=== PATIENT | male | born 1975 | race Two or more races ===

== ENCOUNTER 2020-07-07 12:34 | Inpatient (IN) | payer OTHER ==
[2020-07-07] VITALS (10 sets, daily range): BP systolic 127–144; BP diastolic 72–98
[~2020-07-07] VITALS: Ht 162.6 cm; Wt 79.0 kg
[2020-07-07] MEDS ORDERED: HEPARIN for IV BOLUS 10,000 UNIT/10 ML VIAL. ONE (12:39)
[2020-07-07] MEDS ORDERED: fentaNYL PF VIAL 100 MCG/2 ML VIAL ONE (12:39)
[2020-07-07] MEDS ORDERED: ONDANSETRON PF 4 MG/2 ML VIAL. ONE (12:39)
[2020-07-07] MEDS ORDERED: IV NORMAL SALINE 1000ML BAG 1,000 ML IV ONE (12:45)
[2020-07-07] MEDS ORDERED: fentaNYL PF VIAL 100 MCG/2 ML VIAL IV ONE ×2 (12:45→13:45)
[2020-07-07] MEDS ORDERED: HEPARIN for IV BOLUS 10,000 UNIT/10 ML VIAL. IV ONE (12:45)
[2020-07-07] MEDS ORDERED: ONDANSETRON PF 4 MG/2 ML VIAL. IVP ONE (12:45)
--- NOTE | 2020-07-07 12:51 | PHYS DOC ---
Past Medical History Past Medical History: No Pertinent History Past Surgical History: No Surgical History Smoking Status: Never Smoker Alcohol Use: Occasionally Drug Use: None General Adult EDM: Chief Complaint: Chest pain HPI: HPI: Patient is a 45 year old male presents via EMS as code STEMI. Patient reports having some chest pain that started yesterday which had resolved until this morning. Patient reports noting mid-sternal chest pain that started at 0900. Reports some associated nausea without vomiting. EMS reports giving 324 mg of aspirin and applying Nitropaste prior to arrival. EMS EKG noted significant ST elevation in I, aVL, and V1 through V4. Patient denies any trauma. Denies leg swelling or calf tenderness. Cardiac risk factors of family history of CAD. Review of Systems: Review of Systems: Constitutional: Denies fever or chills; reports malaise Eyes: Denies redness or eye pain HENT: Denies nasal congestion or sore throat Respiratory: Denies cough or shortness of breath Cardiovascular: Reports chest pain; denies palpitations GI: Denies abdominal pain or vomiting; reports nausea : Denies dysuria or hematuria Musculoskeletal: Denies back pain or joint pain Integument: Denies rash or skin lesions Neurologic: Denies headache, focal weakness or sensory changes Complete systems were reviewed and found to be within normal limits, except as documented in this note. Heart Score: HEART Score for Chest Pain: HEART Score for Chest Pain Response (Comments) Value History Highly Suspicious 2 ECG Nonspecific Repolarizatio 1 Age < 45 0 Risk Factors 1 or 2 Risk Factors 1 Troponin >3 x Normal Limit 2 Total 6 Risk Factors: Risk Factors: DM, Current or recent (<one month) smoker, HTN, HLP, family history of CAD, obesity. Risk Scores: Score 0 - 3: 2.5% MACE over next 6 weeks - Discharge Home Score 4 - 6: 20.3% MACE over next 6 weeks - Admit for Clinical Observation Score 7 - 10: 72.7% MACE over next 6 weeks - Early Invasive Strategies Physical Exam: PE: Constitutional: Well developed, well nourished, appears uncomfortable HENT: Normocephalic, atraumatic Eyes: Conjunctiva normal, no discharge Neck: Normal range of motion, no tenderness, supple Lungs & Thorax: No respiratory distress, equal chest rise and fall Abdomen: Soft, no tenderness Skin: Warm, dry, no erythema, no rash Extremities: No tenderness, ROM intact, no edema Neurologic: Alert and oriented X 3, no focal deficits noted Psychologic: Affect normal, judgment normal EKG: EKG: @1236 Sinus bradycardia at 53bpm, ST elevation V1-V4 and I and aVL, no ST depression, t wave inversion III, QRS 86ms, QT/QTc 384/362ms Prehospital EKG from 1321 that was transmitted noted to have Sinus bradycardia at 55bpm, ST elevation noted to I and aVL and V2-V4 with ST depression in III and aVF, QRS 103ms, QRS 392/377ms Radiology/Procedures: Radiology/Procedures: PROCEDURE: PORTABLE CHEST 1V AP chest. HISTORY: STEMI AP view was taken of the chest. Lungs are clear. Heart is normal in size. There is no pleural effusion. IMPRESSION: 1. No acute infiltrates. Electronically signed by: Christophe Lu MD (07/07/2020 12:51 PM) [facility] Course & Med Decision Making: Course & Med Decision Making Pertinent Labs and Imaging studies reviewed. (See chart for details) Patient presents via EMS as code STEMI. Patient reports started to have some chest pain yesterday which since resolved and then again started this morning at approximately 0900. Patient reports some associated nausea. EMS noted prehospital EKG with significant ST elevation upon monitoring. EMS reports giving 324 mg of aspirin and giving some Nitropaste. EMS reports removing Nitropaste just prior to arrival after noting EKG findings in inferior leads. EKG confirmed STEMI. Labs obtained and pending. Chest x-ray stable. Heparin bolus provided. Rapid COVID-19 testing obtained. Case discussed with Dr. Rosario (cardiology) prior to patient's arrival for shrimp pond laborer activation. Dr. Rosario presented to ED soon after patient's arrival and took patient to shrimp pond laborer for intervention. Patient requiring ICU admission for further evaluation and treatment. Discussed with Dr. Richards (hospitalist) who is in agreement with admission. Discussed findings and plan with patient, who acknowledges understanding and agreement. Dragon Disclaimer: Dragon Disclaimer: This electronic medical record was generated, in whole or in part, using a voice recognition dictation system. Departure Departure Impression: Primary Impression: STEMI (ST elevation myocardial infarction) Qualified Codes: I21.3 - ST elevation (STEMI) myocardial infarction of unspecified site Disposition: ADMITTED INPT THIS HOSP (ICU) Condition: GUARDED Critical Care Time Critical care time was 30 minutes which includes time at bedside, spent in discussion of patient's care with specialists and/or family members, with interpretation of laboratory and/or radiological studies and is exclusive of procedures. DONNA LENTZ DO Jul 07, 2020 12:51
--- NOTE | 2020-07-07 12:54 | RAD ---
AP chest. HISTORY: STEMI AP view was taken of the chest. Lungs are clear. Heart is normal in size. There is no pleural effusio n. IMPRESSION: 1. No acute infiltrates. Electronically signed by: Christophe Lu MD (07/07/2020 12:51 PM) [facility]
[2020-07-07] MEDS ORDERED: IODIXANOL 320 MG/ML 100 ML VIAL. ONE ×2 (12:58→13:36)
[2020-07-07] MEDS ORDERED: HEPARIN for ARTERIAL LINE 1,500 ML ONE (12:58)
[2020-07-07] MEDS ORDERED: LIDOCAINE 1% PF 2 ML VIAL. ONE (12:58)
[2020-07-07 12:59] LABS: BASO # 0.1 x10^3/uL (0.0-0.2); BASO % 1 % (0-3); EOS # 0.1 x10^3/uL (0.0-0.7); EOS % 1 % (0-3); HEMATOCRIT 47.6 % (39.0-53.0); HEMOGLOBIN 16.5 g/dL (13.0-17.5); LYMPH # 3.4 x10^3/uL (1.0-4.8); LYMPH % 36 % (24-48); MEAN CORPUSCULAR HEMOGLOBIN 30 pg (25-35); MEAN CORPUSCULAR HGB CONC 35 g/dL (31-37); MEAN CORPUSCULAR VOLUME 88 fL (79-100); MONO # 0.5 x10^3/uL (0.0-1.1); MONO % 5 % (0-9); NEUT # 5.4 x10^3/uL (1.8-7.7); NEUT % 57 % (31-73); PLATELET COUNT 302 x10^3/uL (140-400); RED BLOOD COUNT 5.43 x10^6/uL (4.30-5.70); RED CELL DISTRIBUTION WIDTH 12.9 % (11.5-14.5); WHITE BLOOD COUNT 9.5 x10^3/uL (4.0-11.0)
[2020-07-07] MEDS ORDERED: NITROGLYCERIN 200 MCG/2 ML SYRINGE FOR CATH/VASC LAB. ONE (13:06)
[2020-07-07] MEDS ORDERED: MIDAZOLAM HCL/PF 2 MG/2 ML VIAL. ONE ×2 (13:06→13:23)
[2020-07-07] MEDS ORDERED: VERAPAMIL 5 MG/2 ML VIAL. ONE (13:06)
[2020-07-07 13:09] LABS: CALCIUM 8.9 mg/dL (8.5-10.1); CREATININE 1.1 mg/dL (0.7-1.3); GFR 73.1; POTASSIUM 3.6 mmol/L (3.5-5.1)
[2020-07-07 13:17] LABS: ALBUMIN 3.8 g/dL (3.4-5.0); ALBUMIN/GLOBULIN RATIO 1.1 (1.0-1.7); TOTAL BILIRUBIN 0.6 mg/dL (0.2-1.0); TOTAL PROTEIN 7.2 g/dL (6.4-8.2)
[2020-07-07] MEDS ORDERED: TIROFIBAN 5MG -0.9% NS 100 ML IV ONE (13:25)
[2020-07-07] MEDS ORDERED: NITROGLYCERIN 200 MCG/2 ML SYRINGE FOR CATH/VASC LAB. IART ONE (13:45)
[2020-07-07] MEDS ORDERED: IODIXANOL 320 MG/ML 100 ML VIAL. IART ONE (13:45)
[2020-07-07] MEDS ORDERED: VERAPAMIL 5 MG/2 ML VIAL. IART ONE (13:45)
[2020-07-07] MEDS ORDERED: MIDAZOLAM HCL/PF 2 MG/2 ML VIAL. IV ONE (13:45)
[2020-07-07] MEDS ORDERED: HEPARIN for IV BOLUS 10,000 UNIT/10 ML VIAL. IART ONE (13:45)
[2020-07-07] MEDS ORDERED: LIDOCAINE 1% PF 2 ML VIAL. INJ ONE (13:45)
[2020-07-07] MEDS ORDERED: PRASUGREL 10 MG TABLET. ONE (13:55)
[2020-07-07] MEDS ORDERED: PRASUGREL 10 MG TABLET. PO ONE (14:00)
[2020-07-07] MEDS ORDERED: NITROGLYCERIN 200 MCG/2 ML SYRINGE FOR CATH/VASC LAB. ICAR ONE (14:00)
[2020-07-07 14:19] LABS: PROTHROMBIN TIME PATIENT 12.9 SEC (11.7-14.0)
[2020-07-07] MEDS: TIROFIBAN 5MG -0.9% NS 100 ML IV PRN ×3 (14:26→22:14)
--- NOTE | 2020-07-07 14:33 | PDOC2 ---
CARDIOLOGY CONSULT NOTE DATE OF SERVICE: DATE: 07/07/20 TIME: 14:30 CHIEF COMPLAINT: Chest pain HPI: 45-year-old male without any significant past medical history presented to the hospital with stuttering chest pain for the previous 12 hours. Initial EKG revealed ST elevation NC. He was taken emergently to the cardiac catheterization laboratory after discussion of risks and benefits PMHX: No significant past medical history SOCHX: Negative for alcohol, tobacco or illicit drug use. 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 He is and has 4 children FAMHX: Positive for significant family history in his brother, mother and father CURRENT MEDS: Current Medications Medications (Trade) Dose Ordered Sig/Kaushal Route PRN Reason Start Time Stop Time Status Last Admin Dose Admin Fentanyl Citrate (Fentanyl 2ml Vial) 50 mcg 1X ONCE IV 07/07/20 12:45 07/07/20 13:08 DC 07/07/20 12:50 Heparin Sodium (Porcine) (Heparin Sodium) 4,000 unit 1X ONCE IV 07/07/20 12:45 07/07/20 13:08 DC 07/07/20 12:50 Sodium Chloride 1,000 ml @ 1,000 mls/hr 1X ONCE IV 07/07/20 12:45 07/07/20 14:09 DC 07/07/20 12:48 Ondansetron HCl (Zofran) 4 mg 1X ONCE IVP 07/07/20 12:45 07/07/20 13:08 DC 07/07/20 12:48 ALLERGIES: Allergies Coded Allergies Type Severity Reaction Last Updated Verified No Known Drug Allergies 07/07/20 No ROS: Negative for 10 out of 14 systems reviewed unless otherwise mentioned above in HPI PHYSICAL EXAM: Vital Signs/I&O: Vital Signs Date Time Temp Pulse Resp B/P (MAP) Pulse Ox O2 Delivery O2 Flow Rate FiO2 07/07/20 13:05 58 22 182/103 (129) 99 Room Air 07/07/20 12:50 2.0 07/07/20 12:34 96.3 96.3 Physical Exam: The patient appeared well nourished and normally developed. He was in moderate distress due to his chest pain Head exam is unremarkable. No scleral icterus or corneal arcus noted. Neck is without jugular venous distension, thyromegaly, or carotid bruits. Carotid upstrokes are brisk bilaterally. Lungs are clear to auscultation and percussion. Cardiac exam reveals the PMI to be normally sized and situated. Rhythm is regu lar. First and second heart sounds normal. No murmurs, rubs or gallops. Abdominal exam reveals normal bowel sounds, no masses, no organomegaly and no aortic enlargement. Extremities are nonedematous and both femoral and pedal pulses are normal. Msk: No traumua Neuro: No focal deficits DIAGNOSTIC TESTING: EKG revealed [address] elevation. Lab Troponin elevated at 0.231 CBC and CMP are unremarkable ASSESSMENT: 1. Anterolateral ST elevation [place] secondary to acute proximal LAD occlusion PLAN: 1. Patient underwent successful treatment with a placement of a drug-eluting stent. 2. Continue tirofiban for the next 18 hours. Continue aspirin 81 mg daily indefinitely 3. Prasugrel 10 mg daily for 1 year 4. High-dose statin therapy and lipid management based on lipid panel prior to discharge, cardiac rehab referral has been made. Supportive care for now. Monitor for the next 36 hours and likely plan for discharge on July 09. ML SINGH MD Jul 07, 2020 14:33
--- NOTE | 2020-07-07 16:42 | PDOC1 ---
History and Physical Date of Admission Date of Admission July 07, 2020 Identification/Chief Complaint Chief Complaint My chest hurts Source Source: Chart review, Patient History of Present Illness History of Present Illness Patient is a 45-year-old gentleman with no significant past medical history who was in his usual state of health until yesterday evening when he presented precordial chest comfort that he rated an 8 out of 10 intensity no radiation to the jaw or the arm. The patient denies any nausea vomiting no sensation of impending doom no diaphoresis associated with the discomfort. Patient did not self medicate at home and muscled himself to sleep. 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 Patient bent over and apparently was able to find some relief. He continued to work and had another event which prompted his to call their son who actually also encouraged the patient to come to the emergency department. He was found to have a STEMI when he was evaluated in the emergency department and urgently taken to the cardiac Copyright Clerk. Patient seen post cardiac catheterization where and 99.9% occlusion of the LAD was found. The patient also had an RCA of 50% stenosis drug-eluting stent has been deployed in the patient at the time of my evaluation is in no acute distress. He is chest pain-free hemodynamically stable and telemetry shows no evidence of ST segment elevations at the present time. Plan of care has been explained detail all of his concerns were addressed to the best my abilities family is at bedside. Reassurance provided Past Medical History Past Medical History No past medical history Past Surgical History Past Surgical History: No pertinent history Family History Family History: No Significant Social History Smoke: No ALCOHOL: none Drugs: None Current Problem List Problem List Problems Medical Problems: (1) STEMI (ST elevation myocardial infarction) Status: Acute Current Medications Current Medications Current Medications Medications (Trade) Dose Ordered Sig/Kaushal Start Time Stop Time Status Last Admin Dose Admin Aspirin (Ecotrin) 81 mg [id number] 07/08/20 08:00 Atorvastatin Calcium (Lipitor) 40 mg QHS 07/07/20 21:00 Fentanyl Citrate (Fentanyl 2ml Vial) 100 mcg 1X ONCE 07/07/20 13:45 07/07/20 13:46 DC 07/07/20 14:27 100 MCG Heparin Sodium (Porcine) (Heparin Sodium) 2,500 unit 1X ONCE 07/07/20 13:45 07/07/20 13:46 DC 07/07/20 14:29 2,500 UNIT Heparin Sodium/ Sodium Chloride (HEPARIN for ARTERIAL LINE FLUSH) 1,000 unit 1X ONCE 07/07/20 13:45 07/07/20 13:46 DC 07/07/20 14:25 1,000 UNIT Iodixanol (Visipaque 320) 100 ml 1X ONCE 07/07/20 13:45 07/07/20 13:46 DC 07/07/20 14:24 155 ML Lidocaine HCl (Xylocaine-Mpf 1% 2ml Vial) 2 ml 1X ONCE 07/07/20 13:45 07/07/20 13:46 DC 07/07/20 14:24 2 ML Midazolam HCl (Versed) 2 mg 1X ONCE 07/07/20 13:45 07/07/20 13:46 DC 07/07/20 14:26 4 MG Nitroglycerin (Nitroglycerin) 200 mcg 1X ONCE 07/07/20 14:00 07/07/20 14:01 DC 07/07/20 14:25 600 MCG Ondansetron HCl (Zofran) 4 mg STK-MED ONCE 07/07/20 12:39 07/07/20 12:39 DC Prasugrel (Effient) 10 mg [id number] 07/08/20 08:00 Sodium Chloride 1,000 ml @ 1,000 mls/hr 1X ONCE 07/07/20 12:45 07/07/20 14:09 DC 07/07/20 12:48 1,000 MLS/HR Tirofiban/Sodium Chloride 100 ml @ 0 mls/hr CONT PRN 07/07/20 13:45 07/08/20 07:44 07/07/20 15:41 13.3 MLS/HR Verapamil HCl (Verapamil) 2.5 mg 1X ONCE 07/07/20 13:45 07/07/20 13:46 DC 07/07/20 14:27 2.5 MG Allergies Allergies Allergies Coded Allergies Type Severity Reaction Last Updated Verified No Known Drug Allergies 07/07/20 No ROS Review of System CONSTITUTIONAL: No fever or chills EYES: No recent changes SKIN: No rash or itching CARDIOVASCULAR: No chest pain, syncope, palpitations, or edema RESPIRATORY: No SOB or cough GASTROINTESTINAL: No nausea, vomiting or abdominal pain NEUROLOGICAL: No headaches or weakness ENDOCRINE: No cold or heat intolerance GENITOURINARY: No urgency or frequency of urination MUSCULOSKELETAL: No back pain or joint pain LYMPHATICS: No enlarged lymph nodes PSYCHIATRIC: No anxiety or depression Physical Exam Physical Exam GEN.: No apparent distress. Alert and oriented. HEENT: Head is normocephalic, atraumatic NECK: Supple. LUNGS: Clear to auscultation. HEART: RRR, S1, S2 present. Peripheral pulses intact ABDOMEN: Soft, nontender. Positive bowel sounds. EXTREMITIES: Without any cyanosis. NEUROLOGIC: Normal speech, normal tone PSYCHIATRIC: Normal affect, normal mood. SKIN: No ulcerations Vitals Vitals Vital Signs Date Time Temp Pulse Resp B/P (MAP) Pulse Ox O2 Delivery O2 Flow Rate FiO2 07/07/20 14:55 97.3 64 18 136/72 (93) 91 Room Air 97.3 07/07/20 14:38 2.0 Labs Labs Laboratory Tests Test 07/07/20 12:40 07/07/20 12:41 White Blood Count 9.5 x10^3/uL (4.0-11.0) Red Blood Count 5.43 x10^6/uL (4.30-5.70) Hemoglobin 16.5 g/dL (13.0-17.5) Hematocrit 47.6 % (39.0-53.0) Mean Corpuscular Volume 88 fL (79-100) Mean Corpuscular Hemoglobin 30 pg (25-35) Mean Corpuscular Hemoglobin Concent 35 g/dL (31-37) Red Cell Distribution Width 12.9 % (11.5-14.5) Platelet Count 302 x10^3/uL (140-400) Neutrophils (%) (Auto) 57 % (31-73) Lymphocytes (%) (Auto) 36 % (24-48) Monocytes (%) (Auto) 5 % (0-9) Eosinophils (%) (Auto) 1 % (0-3) Basophils (%) (Auto) 1 % (0-3) Neutrophils # (Auto) 5.4 x10^3/uL (1.8-7.7) Lymphocytes # (Auto) 3.4 x10^3/uL (1.0-4.8) Monocytes # (Auto) 0.5 x10^3/uL (0.0-1.1) Eosinophils # (Auto) 0.1 x10^3/uL (0.0-0.7) Basophils # (Auto) 0.1 x10^3/uL (0.0-0.2) Prothrombin Time 12.9 SEC (11.7-14.0) Prothromb Time International Ratio 1.0 (0.8-1.1) Activated Partial Thromboplast Time 29 SEC (24-38) Sodium Level 138 mmol/L (136-145) Potassium Level 3.6 mmol/L (3.5-5.1) Chloride Level 105 mmol/L (98-107) Carbon Dioxide Level 24 mmol/L (21-32) Anion Gap 9 (6-14) Blood Urea Nitrogen 12 mg/dL (8-26) Creatinine 1.1 mg/dL (0.7-1.3) Estimated GFR (Cockcroft-Gault) 73.1 BUN/Creatinine Ratio 11 (6-20) Glucose Level 122 mg/dL (70-99) Calcium Level 8.9 mg/dL (8.5-10.1) Magnesium Level 2.0 mg/dL (1.8-2.4) Total Bilirubin 0.6 mg/dL (0.2-1.0) Aspartate Amino Transf (AST/SGOT) 33 U/L (15-37) Alanine Aminotransferase (ALT/SGPT) 69 U/L (16-63) Alkaline Phosphatase 75 U/L (46-116) Troponin I Quantitative 0.231 ng/mL (0.000-0.055) LP-Leq-R-Type Natriuretic Peptide 55 pg/mL (0-124) Total Protein 7.2 g/dL (6.4-8.2) Albumin 3.8 g/dL (3.4-5.0) Albumin/Globulin Ratio 1.1 (1.0-1.7) Lipase 101 U/L (73-393) SARS-CoV-2 Antigen (Rapid) Negative (NEGATIVE) Laboratory Tests Test 07/07/20 12:40 07/07/20 12:41 White Blood Count 9.5 x10^3/uL (4.0-11.0) Red Blood Count 5.43 x10^6/uL (4.30-5.70) Hemoglobin 16.5 g/dL (13.0-17.5) Hematocrit 47.6 % (39.0-53.0) Mean Corpuscular Volume 88 fL (79-100) Mean Corpuscular Hemoglobin 30 pg (25-35) Mean Corpuscular Hemoglobin Concent 35 g/dL (31-37) Red Cell Distribution Width 12.9 % (11.5-14.5) Platelet Count 302 x10^3/uL (140-400) Neutrophils (%) (Auto) 57 % (31-73) Lymphocytes (%) (Auto) 36 % (24-48) Monocytes (%) (Auto) 5 % (0-9) Eosinophils (%) (Auto) 1 % (0-3) Basophils (%) (Auto) 1 % (0-3) Neutrophils # (Auto) 5.4 x10^3/uL (1.8-7.7) Lymphocytes # (Auto) 3.4 x10^3/uL (1.0-4.8) Monocytes # (Auto) 0.5 x10^3/uL (0.0-1.1) Eosinophils # (Auto) 0.1 x10^3/uL (0.0-0.7) Basophils # (Auto) 0.1 x10^3/uL (0.0-0.2) Prothrombin Time 12.9 SEC (11.7-14.0) Prothromb Time International Ratio 1.0 (0.8-1.1) Activated Partial Thromboplast Time 29 SEC (24-38) Sodium Level 138 mmol/L (136-145) Potassium Level 3.6 mmol/L (3.5-5.1) Chloride Level 105 mmol/L (98-107) Carbon Dioxide Level 24 mmol/L (21-32) Anion Gap 9 (6-14) Blood Urea Nitrogen 12 mg/dL (8-26) Creatinine 1.1 mg/dL (0.7-1.3) Estimated GFR (Cockcroft-Gault) 73.1 BUN/Creatinine Ratio 11 (6-20) Glucose Level 122 mg/dL (70-99) Calcium Level 8.9 mg/dL (8.5-10.1) Magnesium Level 2.0 mg/dL (1.8-2.4) Total Bilirubin 0.6 mg/dL (0.2-1.0) Aspartate Amino Transf (AST/SGOT) 33 U/L (15-37) Alanine Aminotransferase (ALT/SGPT) 69 U/L (16-63) Alkaline Phosphatase 75 U/L (46-116) Troponin I Quantitative 0.231 ng/mL (0.000-0.055) TZ-Vta-L-Type Natriuretic Peptide 55 pg/mL (0-124) Total Protein 7.2 g/dL (6.4-8.2) Albumin 3.8 g/dL (3.4-5.0) Albumin/Globulin Ratio 1.1 (1.0-1.7) Lipase 101 U/L (73-393) SARS-CoV-2 Antigen (Rapid) Negative (NEGATIVE) VTE Prophylaxis Ordered VTE Prophylaxis Devices: Yes VTE Pharmacological Prophylaxi: Yes Assessment/Plan Assessment/Plan STEMI Anterolateral ST segment elevation [place] secondary to acute proximal LAD occlusion Plan: Follow recommendations from cardiology as follows 1. Patient underwent successful treatment with a placement of a drug-eluting stent. 2. Continue tirofiban for the next 18 hours. Continue aspirin 81 mg daily indefinitely 3. Prasugrel 10 mg daily for 1 year 4. High-dose statin therapy and lipid management based on lipid panel prior to discharge, cardiac rehab referral has been made. Supportive care for now. Monitor for the next 36 hours and likely plan for discharge on July 09. Justifications for Admission Other Justification DIVINA CHRISTIANSON MD Jul 07, 2020 16:42
--- NOTE | 2020-07-07 17:36 | NUR ---
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 Oriented patient to room. TR band in place with 11cc air and arm board in place.
[2020-07-07] MEDS ORDERED: ZOLPIDEM 5 MG TABLET. PO PRN (20:00)
[2020-07-07] MEDS ORDERED: ATORVASTATIN CALCIUM 40 MG TABLET. PO SCH (21:00)
[2020-07-07] MEDS: oxyCODONE/APAP 5/325 1 TAB TABLET PO PRN (22:00)
--- NOTE | 2020-07-07 23:42 | PDOC4 ---
BRIEF OPERATIVE NOTE Pre-Op Diagnosis STEMI Post-Op Diagnosis stemi Procedure Performed lhc, coronary angiography pci Surgeon amilcar EBL 20 ml Anesthesiologist none Anesthesia Type: Conscious Sedation Specimens Obtained none Findings see cath report ML SINGH MD Jul 07, 2020 23:42
[2020-07-08 02:47] VITALS: BP 118/67
[2020-07-08] MEDS: oxyCODONE/APAP 5/325 1 TAB TABLET PO PRN ×2 (04:07→09:28)
[2020-07-08 04:39] LABS: BASO # 0.1 x10^3/uL (0.0-0.2); BASO % 1 % (0-3); EOS # 0.1 x10^3/uL (0.0-0.7); EOS % 2 % (0-3); HEMATOCRIT 43.9 % (39.0-53.0); HEMOGLOBIN 15.2 g/dL (13.0-17.5); LYMPH # 2.7 x10^3/uL (1.0-4.8); LYMPH % 30 % (24-48); MEAN CORPUSCULAR HEMOGLOBIN 30 pg (25-35); MEAN CORPUSCULAR HGB CONC 35 g/dL (31-37); MEAN CORPUSCULAR VOLUME 88 fL (79-100); MONO # 0.7 x10^3/uL (0.0-1.1); MONO % 8 % (0-9); NEUT # 5.3 x10^3/uL (1.8-7.7); NEUT % 60 % (31-73); PLATELET COUNT 266 x10^3/uL (140-400); RED BLOOD COUNT 5.01 x10^6/uL (4.30-5.70); RED CELL DISTRIBUTION WIDTH 12.6 % (11.5-14.5); WHITE BLOOD COUNT 8.9 x10^3/uL (4.0-11.0)
[2020-07-08 05:04] LABS: ALBUMIN 3.2 g/dL (3.4-5.0); ALBUMIN/GLOBULIN RATIO 1.1 (1.0-1.7); CALCIUM 8.2 mg/dL (8.5-10.1); CREATININE 1.2 mg/dL (0.7-1.3); GFR 66.1; POTASSIUM 3.7 mmol/L (3.5-5.1); TOTAL BILIRUBIN 0.9 mg/dL (0.2-1.0)
[2020-07-08 07:00] VITALS: BP 144/97
[2020-07-08] MEDS ORDERED: ASPIRIN ENTERIC COATED 81 MG TABLET.DR. PO SCH (08:00)
[2020-07-08] MEDS ORDERED: PRASUGREL 10 MG TABLET. PO SCH (08:00)
--- NOTE | 2020-07-08 08:31 | PDOC ---
[employer] PROGRESS NOTE Date of Service DOS: DATE: 07/08/20 TIME: 08:19 Chief Complaint Chief Complaint STEMI Anterolateral ST segment elevation LA secondary to acute proximal LAD occlusion Plan: Consultations cardiology Had left heart cath with drug-eluting stent Continue tirofiban for next 18 hr. Cont ASA 81 mg indefinitely Prasugrel 10 mg daily for 1 year High-dose statin, cardiac rehab referral History of Present Illness History of Present Illness Patient is a 45-year-old gentleman with no significant past medical history who was in his usual state of health until yesterday evening when he presented precordial chest comfort that he rated an 8 out of 10 intensity no radiation to the jaw or the arm. The patient denies any nausea vomiting no sensation of impending doom no diaphoresis associated with the discomfort. Patient did not self medicate at home and muscled himself to sleep. 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 Patient bent over and apparently was able to find some relief. He continued to work and had another event which prompted his to call their son who actually also encouraged the patient to come to the emergency department. He was found to have a STEMI when he was evaluated in the emergency department and urgently taken to the cardiac [facility]. Patient seen post cardiac catheterization where and 99.9% occlusion of the LAD was found. The patient also had an RCA of 50% stenosis drug-eluting stent has been deployed in the patient at the time of my evaluation is in no acute distress. He is chest pain-free hemodynamically stable and telemetry shows no evidence of ST segment elevations at the present time. Plan of care has been explained detail all of his concerns were addressed to the best my abilities family is at bedside. 07/08: Patient seen and evaluated. He had PCI with drug-eluting stent yesterday. Continue aspirin, prasugrel, and statin. Echocardiogram pending. If ambulating without issue, may discharge after 7 PM tonight. Discussed with RN. Greater than 30 minutes spent managing the discharge this patient. Vitals/I&O Vitals/I&O: Vital Signs Date Time Temp Pulse Resp B/P (MAP) Pulse Ox O2 Delivery O2 Flow Rate FiO2 07/08/20 05:07 Room Air 07/08/20 02:47 98.2 73 18 118/67 (84) 100 98.2 07/07/20 23:00 2.0 I & O 07/07/20 07/07/20 07/08/20 15:00 23:00 07:00 Intake Total 425 ml 0 ml Output Total 150 ml Balance 275 ml 0 ml Physical Exam General: Alert, Cooperative, No acute distress Heart: Regular rate Lungs: Clear Abdomen: Normal bowel sounds Extremities: No clubbing, No cyanosis Skin: No rashes, No breakdown Labs Labs: Laboratory Tests Test 07/07/20 12:40 07/07/20 12:41 07/08/20 04:30 White Blood Count 9.5 x10^3/uL (4.0-11.0) 8.9 x10^3/uL (4.0-11.0) Red Blood Count 5.43 x10^6/uL (4.30-5.70) 5.01 x10^6/uL (4.30-5.70) Hemoglobin 16.5 g/dL (13.0-17.5) 15.2 g/dL (13.0-17.5) Hematocrit 47.6 % (39.0-53.0) 43.9 % (39.0-53.0) Mean Corpuscular Volume 88 fL (79-100) 88 fL (79-100) Mean Corpuscular Hemoglobin 30 pg (25-35) 30 pg (25-35) Mean Corpuscular Hemoglobin Concent 35 g/dL (31-37) 35 g/dL (31-37) Red Cell Distribution Width 12.9 % (11.5-14.5) 12.6 % (11.5-14.5) Platelet Count 302 x10^3/uL (140-400) 266 x10^3/uL (140-400) Neutrophils (%) (Auto) 57 % (31-73) 60 % (31-73) Lymphocytes (%) (Auto) 36 % (24-48) 30 % (24-48) Monocytes (%) (Auto) 5 % (0-9) 8 % (0-9) Eosinophils (%) (Auto) 1 % (0-3) 2 % (0-3) Basophils (%) (Auto) 1 % (0-3) 1 % (0-3) Neutrophils # (Auto) 5.4 x10^3/uL (1.8-7.7) 5.3 x10^3/uL (1.8-7.7) Lymphocytes # (Auto) 3.4 x10^3/uL (1.0-4.8) 2.7 x10^3/uL (1.0-4.8) Monocytes # (Auto) 0.5 x10^3/uL (0.0-1.1) 0.7 x10^3/uL (0.0-1.1) Eosinophils # (Auto) 0.1 x10^3/uL (0.0-0.7) 0.1 x10^3/uL (0.0-0.7) Basophils # (Auto) 0.1 x10^3/uL (0.0-0.2) 0.1 x10^3/uL (0.0-0.2) Prothrombin Time 12.9 SEC (11.7-14.0) Prothromb Time International Ratio 1.0 (0.8-1.1) Activated Partial Thromboplast Time 29 SEC (24-38) Sodium Level 138 mmol/L (136-145) 139 mmol/L (136-145) Potassium Level 3.6 mmol/L (3.5-5.1) 3.7 mmol/L (3.5-5.1) Chloride Level 105 mmol/L (98-107) 105 mmol/L (98-107) Carbon Dioxide Level 24 mmol/L (21-32) 25 mmol/L (21-32) Anion Gap 9 (6-14) 9 (6-14) Blood Urea Nitrogen 12 mg/dL (8-26) 13 mg/dL (8-26) Creatinine 1.1 mg/dL (0.7-1.3) 1.2 mg/dL (0.7-1.3) Estimated GFR (Cockcroft-Gault) 73.1 66.1 BUN/Creatinine Ratio 11 (6-20) 11 (6-20) Glucose Level 122 mg/dL (70-99) 97 mg/dL (70-99) Calcium Level 8.9 mg/dL (8.5-10.1) 8.2 mg/dL (8.5-10.1) Magnesium Level 2.0 mg/dL (1.8-2.4) Total Bilirubin 0.6 mg/dL (0.2-1.0) 0.9 mg/dL (0.2-1.0) Aspartate Amino Transf (AST/SGOT) 33 U/L (15-37) 50 U/L (15-37) Alanine Aminotransferase (ALT/SGPT) 69 U/L (16-63) 57 U/L (16-63) Alkaline Phosphatase 75 U/L (46-116) 69 U/L (46-116) Troponin I Quantitative 0.231 ng/mL (0.000-0.055) TG-Hyc-W-Type Natriuretic Peptide 55 pg/mL (0-124) Total Protein 7.2 g/dL (6.4-8.2) 6.0 g/dL (6.4-8.2) Albumin 3.8 g/dL (3.4-5.0) 3.2 g/dL (3.4-5.0) Albumin/Globulin Ratio 1.1 (1.0-1.7) 1.1 (1.0-1.7) Lipase 101 U/L (73-393) SARS-CoV-2 Antigen (Rapid) Negative (NEGATIVE) Assessment and Plan Assessmemt and Plan Problems Medical Problems: (1) STEMI (ST elevation myocardial infarction) Status: Acute Comment Review of Relevant I have reviewed the following items benito (where applicable) has been applied. Medications: Current Medications Medications (Trade) Dose Ordered Sig/Kaushal Route PRN Reason Start Time Stop Time Status Last Admin Dose Admin Fentanyl Citrate (Fentanyl 2ml Vial) 50 mcg 1X ONCE IV 07/07/20 12:45 07/07/20 13:08 DC 07/07/20 12:50 Heparin Sodium (Porcine) (Heparin Sodium) 4,000 unit 1X ONCE IV 07/07/20 12:45 07/07/20 13:08 DC 07/07/20 12:50 Sodium Chloride 1,000 ml @ 1,000 mls/hr 1X ONCE IV 07/07/20 12:45 07/07/20 14:09 DC 07/07/20 12:48 Ondansetron HCl (Zofran) 4 mg 1X ONCE IVP 07/07/20 12:45 07/07/20 13:08 DC 07/07/20 12:48 Nitroglycerin (Nitroglycerin) 200 mcg 1X ONCE IART 07/07/20 13:45 07/07/20 13:46 DC 07/07/20 14:25 Verapamil HCl (Verapamil) 2.5 mg 1X ONCE IART 07/07/20 13:45 07/07/20 13:46 DC 07/07/20 14:27 Heparin Sodium (Porcine) (Heparin Sodium) 2,500 unit 1X ONCE IART 07/07/20 13:45 07/07/20 13:46 DC 07/07/20 14:29 Heparin Sodium/ Sodium Chloride (HEPARIN for ARTERIAL LINE FLUSH) 1,000 unit 1X ONCE IART 07/07/20 13:45 07/07/20 13:46 DC 07/07/20 14:24 Heparin Sodium/ Sodium Chloride (HEPARIN for ARTERIAL LINE FLUSH) 1,000 unit 1X ONCE IART 07/07/20 13:45 07/07/20 13:46 DC 07/07/20 14:25 Midazolam HCl (Versed) 2 mg 1X ONCE IV 07/07/20 13:45 07/07/20 13:46 DC 07/07/20 14:26 Fentanyl Citrate (Fentanyl 2ml Vial) 100 mcg 1X ONCE IV 07/07/20 13:45 07/07/20 13:46 DC 07/07/20 14:27 Iodixanol (Visipaque 320) 100 ml 1X ONCE IART 07/07/20 13:45 07/07/20 13:46 DC 07/07/20 14:24 Tirofiban/Sodium Chloride 100 ml @ 0 mls/hr CONT PRN IV PER PROTOCOL 07/07/20 13:45 07/08/20 07:44 DC 07/07/20 22:14 Lidocaine HCl (Xylocaine-Mpf 1% 2ml Vial) 2 ml 1X ONCE INJ 07/07/20 13:45 07/07/20 13:46 DC 07/07/20 14:24 Nitroglycerin (Nitroglycerin) 200 mcg 1X ONCE ICAR 07/07/20 14:00 07/07/20 14:01 DC 07/07/20 14:25 Prasugrel (Effient) 60 mg 1X ONCE PO 07/07/20 14:00 07/07/20 14:01 DC 07/07/20 14:28 Prasugrel (Effient) 10 mg DAILYWBKFT PO 07/08/20 08:00 07/08/20 08:12 Atorvastatin Calcium (Lipitor) 40 mg QHS PO 07/07/20 21:00 07/07/20 22:00 Aspirin (Ecotrin) 81 mg DAILYWBKFT PO 07/08/20 08:00 07/08/20 08:12 Oxycodone/ Acetaminophen (Percocet 5/325) 1 tab PRN Q6HRS PRN PO PAIN 07/07/20 20:00 07/08/20 04:07 Justifications for Admission Other Justification WILMER GONZALEZ MD Jul 08, 2020 08:30
[2020-07-08] MEDS ORDERED: ONDANSETRON PF 4 MG/2 ML VIAL. IVP PRN (09:00)
[2020-07-08] MEDS ORDERED: METOPROLOL SUCC 24HR ER 25 MG TAB.ER.24H. PO SCH (10:15)
[2020-07-08] MEDS ORDERED: ISOSORBIDE MONONITRATE ER 30 MG TAB.ER.24H PO SCH (10:15)
--- NOTE | 2020-07-08 10:29 | PDOC ---
CARDIOLOGY PROGRESS NOTE SUBJECTIVE: Mild chest pain this a.m. with nausea but otherwise doing well. OBJECTIVE: Vital Signs/I&O: Vital Signs Date Time Temp Pulse Resp B/P (MAP) Pulse Ox O2 Delivery O2 Flow Rate FiO2 07/08/20 09:28 18 Room Air 07/08/20 07:00 98.2 71 144/97 (113) 94 98.2 07/07/20 23:00 2.0 I & O 07/07/20 07/07/20 07/08/20 15:00 23:00 07:00 Intake Total 425 ml 0 ml Output Total 150 ml Balance 275 ml 0 ml Objective: GEN.: No apparent distress. Alert and oriented. HEENT: Head is normocephalic, atraumatic NECK: Supple. LUNGS: Clear to auscultation. HEART: RRR, S1, S2 present. Peripheral pulses intact ABDOMEN: Soft, nontender. Positive bowel sounds. EXTREMITIES: Without any cyanosis. NEUROLOGIC: Normal speech, normal tone PSYCHIATRIC: Normal affect, normal mood. SKIN: No ulcerations CURRENT MEDICATIONS: Current Medications Medications (Trade) Dose Ordered Sig/Kaushal Route PRN Reason Start Time Stop Time Status Last Admin Dose Admin Fentanyl Citrate (Fentanyl 2ml Vial) 50 mcg 1X ONCE IV 07/07/20 12:45 07/07/20 13:08 DC 07/07/20 12:50 Heparin Sodium (Porcine) (Heparin Sodium) 4,000 unit 1X ONCE IV 07/07/20 12:45 07/07/20 13:08 DC 07/07/20 12:50 Sodium Chloride 1,000 ml @ 1,000 mls/hr 1X ONCE IV 07/07/20 12:45 07/07/20 14:09 DC 07/07/20 12:48 Ondansetron HCl (Zofran) 4 mg 1X ONCE IVP 07/07/20 12:45 07/07/20 13:08 DC 07/07/20 12:48 Nitroglycerin (Nitroglycerin) 200 mcg 1X ONCE IART 07/07/20 13:45 07/07/20 13:46 DC 07/07/20 14:25 Verapamil HCl (Verapamil) 2.5 mg 1X ONCE IART 07/07/20 13:45 07/07/20 13:46 DC 07/07/20 14:27 Heparin Sodium (Porcine) (Heparin Sodium) 2,500 unit 1X ONCE IART 07/07/20 13:45 07/07/20 13:46 DC 07/07/20 14:29 Heparin Sodium/ Sodium Chloride (HEPARIN for ARTERIAL LINE FLUSH) 1,000 unit 1X ONCE IART 07/07/20 13:45 07/07/20 13:46 DC 07/07/20 14:24 Heparin Sodium/ Sodium Chloride (HEPARIN for ARTERIAL LINE FLUSH) 1,000 unit 1X ONCE IART 07/07/20 13:45 07/07/20 13:46 DC 07/07/20 14:25 Midazolam HCl (Versed) 2 mg 1X ONCE IV 07/07/20 13:45 07/07/20 13:46 DC 07/07/20 14:26 Fentanyl Citrate (Fentanyl 2ml Vial) 100 mcg 1X ONCE IV 07/07/20 13:45 07/07/20 13:46 DC 07/07/20 14:27 Iodixanol (Visipaque 320) 100 ml 1X ONCE IART 07/07/20 13:45 07/07/20 13:46 DC 07/07/20 14:24 Tirofiban/Sodium Chloride 100 ml @ 0 mls/hr CONT PRN IV PER PROTOCOL 07/07/20 13:45 07/08/20 07:44 DC 07/07/20 22:14 Lidocaine HCl (Xylocaine-Mpf 1% 2ml Vial) 2 ml 1X ONCE INJ 07/07/20 13:45 07/07/20 13:46 DC 07/07/20 14:24 Nitroglycerin (Nitroglycerin) 200 mcg 1X ONCE ICAR 07/07/20 14:00 07/07/20 14:01 DC 07/07/20 14:25 Prasugrel (Effient) 60 mg 1X ONCE PO 07/07/20 14:00 07/07/20 14:01 DC 07/07/20 14:28 Prasugrel (Effient) 10 mg DAILYWBKFT PO 07/08/20 08:00 07/08/20 08:12 Atorvastatin Calcium (Lipitor) 40 mg QHS PO 07/07/20 21:00 07/07/20 22:00 Aspirin (Ecotrin) 81 mg DAILYWBKFT PO 07/08/20 08:00 07/08/20 08:12 Oxycodone/ Acetaminophen (Percocet 5/325) 1 tab PRN Q6HRS PRN PO PAIN 07/07/20 20:00 07/08/20 09:28 Ondansetron HCl (Zofran) 4 mg PRN Q6HRS PRN IVP NAUSEA/VOMITING 07/08/20 09:00 07/08/20 09:28 DIAGNOSTIC TESTING: trop pending lipids pending. echo pending Labs: Laboratory Tests 07/08/20 04:30 Laboratory Tests Test 07/07/20 12:40 07/07/20 12:41 07/08/20 04:30 White Blood Count 9.5 x10^3/uL (4.0-11.0) 8.9 x10^3/uL (4.0-11.0) Red Blood Count 5.43 x10^6/uL (4.30-5.70) 5.01 x10^6/uL (4.30-5.70) Hemoglobin 16.5 g/dL (13.0-17.5) 15.2 g/dL (13.0-17.5) Hematocrit 47.6 % (39.0-53.0) 43.9 % (39.0-53.0) Mean Corpuscular Volume 88 fL (79-100) 88 fL (79-100) Mean Corpuscular Hemoglobin 30 pg (25-35) 30 pg (25-35) Mean Corpuscular Hemoglobin Concent 35 g/dL (31-37) 35 g/dL (31-37) Red Cell Distribution Width 12.9 % (11.5-14.5) 12.6 % (11.5-14.5) Platelet Count 302 x10^3/uL (140-400) 266 x10^3/uL (140-400) Neutrophils (%) (Auto) 57 % (31-73) 60 % (31-73) Lymphocytes (%) (Auto) 36 % (24-48) 30 % (24-48) Monocytes (%) (Auto) 5 % (0-9) 8 % (0-9) Eosinophils (%) (Auto) 1 % (0-3) 2 % (0-3) Basophils (%) (Auto) 1 % (0-3) 1 % (0-3) Neutrophils # (Auto) 5.4 x10^3/uL (1.8-7.7) 5.3 x10^3/uL (1.8-7.7) Lymphocytes # (Auto) 3.4 x10^3/uL (1.0-4.8) 2.7 x10^3/uL (1.0-4.8) Monocytes # (Auto) 0.5 x10^3/uL (0.0-1.1) 0.7 x10^3/uL (0.0-1.1) Eosinophils # (Auto) 0.1 x10^3/uL (0.0-0.7) 0.1 x10^3/uL (0.0-0.7) Basophils # (Auto) 0.1 x10^3/uL (0.0-0.2) 0.1 x10^3/uL (0.0-0.2) Prothrombin Time 12.9 SEC (11.7-14.0) Prothromb Time International Ratio 1.0 (0.8-1.1) Activated Partial Thromboplast Time 29 SEC (24-38) Sodium Level 138 mmol/L (136-145) 139 mmol/L (136-145) Potassium Level 3.6 mmol/L (3.5-5.1) 3.7 mmol/L (3.5-5.1) Chloride Level 105 mmol/L (98-107) 105 mmol/L (98-107) Carbon Dioxide Level 24 mmol/L (21-32) 25 mmol/L (21-32) Anion Gap 9 (6-14) 9 (6-14) Blood Urea Nitrogen 12 mg/dL (8-26) 13 mg/dL (8-26) Creatinine 1.1 mg/dL (0.7-1.3) 1.2 mg/dL (0.7-1.3) Estimated GFR (Cockcroft-Gault) 73.1 66.1 BUN/Creatinine Ratio 11 (6-20) 11 (6-20) Glucose Level 122 mg/dL (70-99) H 97 mg/dL (70-99) Calcium Level 8.9 mg/dL (8.5-10.1) 8.2 mg/dL (8.5-10.1) L Total Bilirubin 0.6 mg/dL (0.2-1.0) 0.9 mg/dL (0.2-1.0) Aspartate Amino Transf (AST/SGOT) 33 U/L (15-37) 50 U/L (15-37) H Alkaline Phosphatase 75 U/L (46-116) 69 U/L (46-116) Total Protein 7.2 g/dL (6.4-8.2) 6.0 g/dL (6.4-8.2) L Albumin 3.8 g/dL (3.4-5.0) 3.2 g/dL (3.4-5.0) L Albumin/Globulin Ratio 1.1 (1.0-1.7) 1.1 (1.0-1.7) Lipase 101 U/L (73-393) SARS-CoV-2 Antigen (Rapid) Negative (NEGATIVE) ASSESSMENT: 1. Anterior STEMI 2. Mild LV dysfunction. PLAN: 1. home on asa, prasugrel, atorvastatin, toprol xl and imdur. 2. Await echo and ambulate, if doing well, then ok to DC after 7 pm tonight. Thanks. Justicifation of Admission Dx: Justifications for Admission: Justification of Admission Dx: Yes ML SINGH MD Jul 08, 2020 10:29
[2020-07-08 11:00] VITALS: BP 145/101
[2020-07-08 11:27] LABS: CHOLESTEROL/HDL RATIO 4.7
[2020-07-08] MEDS ORDERED: ATOR40TA59 PO (11:58)
[2020-07-08] MEDS ORDERED: ASPI-886 PO (11:58)
[2020-07-08] MEDS ORDERED: METO-239 PO (11:58)
[2020-07-08] MEDS ORDERED: ISOS30TA68 PO (11:58)
[2020-07-08] MEDS ORDERED: PRAS10TA9 PO (11:58)
--- NOTE | 2020-07-08 12:08 | PDOC3 ---
Discharge Summary Visit Information Date of Admission: Jul 07, 2020 Date of Discharge: Jul 08, 2020 Final Diagnosis Problems Medical Problems: (1) STEMI (ST elevation myocardial infarction) Status: Acute Brief Hospital Course Allergies Allergies Coded Allergies Type Severity Reaction Last Updated Verified No Known Drug Allergies 07/07/20 No Vital Signs Vital Signs Date Time Temp Pulse Resp B/P (MAP) Pulse Ox O2 Delivery O2 Flow Rate FiO2 07/08/20 10:28 18 Room Air 07/08/20 07:00 98.2 71 144/97 (113) 94 98.2 07/07/20 23:00 2.0 Lab Results Laboratory Tests Test 07/07/20 12:40 07/07/20 12:41 07/08/20 04:30 07/08/20 10:16 White Blood Count 9.5 x10^3/uL (4.0-11.0) 8.9 x10^3/uL (4.0-11.0) Red Blood Count 5.43 x10^6/uL (4.30-5.70) 5.01 x10^6/uL (4.30-5.70) Hemoglobin 16.5 g/dL (13.0-17.5) 15.2 g/dL (13.0-17.5) Hematocrit 47.6 % (39.0-53.0) 43.9 % (39.0-53.0) Mean Corpuscular Volume 88 fL (79-100) 88 fL (79-100) Mean Corpuscular Hemoglobin 30 pg (25-35) 30 pg (25-35) Mean Corpuscular Hemoglobin Concent 35 g/dL (31-37) 35 g/dL (31-37) Red Cell Distribution Width 12.9 % (11.5-14.5) 12.6 % (11.5-14.5) Platelet Count 302 x10^3/uL (140-400) 266 x10^3/uL (140-400) Neutrophils (%) (Auto) 57 % (31-73) 60 % (31-73) Lymphocytes (%) (Auto) 36 % (24-48) 30 % (24-48) Monocytes (%) (Auto) 5 % (0-9) 8 % (0-9) Eosinophils (%) (Auto) 1 % (0-3) 2 % (0-3) Basophils (%) (Auto) 1 % (0-3) 1 % (0-3) Neutrophils # (Auto) 5.4 x10^3/uL (1.8-7.7) 5.3 x10^3/uL (1.8-7.7) Lymphocytes # (Auto) 3.4 x10^3/uL (1.0-4.8) 2.7 x10^3/uL (1.0-4.8) Monocytes # (Auto) 0.5 x10^3/uL (0.0-1.1) 0.7 x10^3/uL (0.0-1.1) Eosinophils # (Auto) 0.1 x10^3/uL (0.0-0.7) 0.1 x10^3/uL (0.0-0.7) Basophils # (Auto) 0.1 x10^3/uL (0.0-0.2) 0.1 x10^3/uL (0.0-0.2) Prothrombin Time 12.9 SEC (11.7-14.0) Prothromb Time International Ratio 1.0 (0.8-1.1) Activated Partial Thromboplast Time 29 SEC (24-38) Sodium Level 138 mmol/L (136-145) 139 mmol/L (136-145) Potassium Level 3.6 mmol/L (3.5-5.1) 3.7 mmol/L (3.5-5.1) Chloride Level 105 mmol/L (98-107) 105 mmol/L (98-107) Carbon Dioxide Level 24 mmol/L (21-32) 25 mmol/L (21-32) Anion Gap 9 (6-14) 9 (6-14) Blood Urea Nitrogen 12 mg/dL (8-26) 13 mg/dL (8-26) Creatinine 1.1 mg/dL (0.7-1.3) 1.2 mg/dL (0.7-1.3) Estimated GFR (Cockcroft-Gault) 73.1 66.1 BUN/Creatinine Ratio 11 (6-20) 11 (6-20) Glucose Level 122 mg/dL (70-99) 97 mg/dL (70-99) Calcium Level 8.9 mg/dL (8.5-10.1) 8.2 mg/dL (8.5-10.1) Magnesium Level 2.0 mg/dL (1.8-2.4) Total Bilirubin 0.6 mg/dL (0.2-1.0) 0.9 mg/dL (0.2-1.0) Aspartate Amino Transf (AST/SGOT) 33 U/L (15-37) 50 U/L (15-37) Alanine Aminotransferase (ALT/SGPT) 69 U/L (16-63) 57 U/L (16-63) Alkaline Phosphatase 75 U/L (46-116) 69 U/L (46-116) Troponin I Quantitative 0.231 ng/mL (0.000-0.055) 6.124 ng/mL (0.000-0.055) GG-[id number]-Type Natriuretic Peptide 55 pg/mL (0-124) Total Protein 7.2 g/dL (6.4-8.2) 6.0 g/dL (6.4-8.2) Albumin 3.8 g/dL (3.4-5.0) 3.2 g/dL (3.4-5.0) Albumin/Globulin Ratio 1.1 (1.0-1.7) 1.1 (1.0-1.7) Lipase 101 U/L (73-393) SARS-CoV-2 Antigen (Rapid) Negative (NEGATIVE) Triglycerides Level 205 mg/dL (0-150) Cholesterol Level 265 mg/dL (0-200) LDL Cholesterol, Calculated 168 mg/dL (0-100) VLDL Cholesterol, Calculated 41 mg/dL (0-40) Non-HDL Cholesterol Calculated 209 mg/dL (0-129) HDL Cholesterol 56 mg/dL (40-60) Cholesterol/HDL Ratio 4.7 Laboratory Tests Test 07/07/20 12:40 07/07/20 12:41 07/08/20 04:30 07/08/20 10:16 White Blood Count 9.5 x10^3/uL (4.0-11.0) 8.9 x10^3/uL (4.0-11.0) Red Blood Count 5.43 x10^6/uL (4.30-5.70) 5.01 x10^6/uL (4.30-5.70) Hemoglobin 16.5 g/dL (13.0-17.5) 15.2 g/dL (13.0-17.5) Hematocrit 47.6 % (39.0-53.0) 43.9 % (39.0-53.0) Mean Corpuscular Volume 88 fL (79-100) 88 fL (79-100) Mean Corpuscular Hemoglobin 30 pg (25-35) 30 pg (25-35) Mean Corpuscular Hemoglobin Concent 35 g/dL (31-37) 35 g/dL (31-37) Red Cell Distribution Width 12.9 % (11.5-14.5) 12.6 % (11.5-14.5) Platelet Count 302 x10^3/uL (140-400) 266 x10^3/uL (140-400) Neutrophils (%) (Auto) 57 % (31-73) 60 % (31-73) Lymphocytes (%) (Auto) 36 % (24-48) 30 % (24-48) Monocytes (%) (Auto) 5 % (0-9) 8 % (0-9) Eosinophils (%) (Auto) 1 % (0-3) 2 % (0-3) Basophils (%) (Auto) 1 % (0-3) 1 % (0-3) Neutrophils # (Auto) 5.4 x10^3/uL (1.8-7.7) 5.3 x10^3/uL (1.8-7.7) Lymphocytes # (Auto) 3.4 x10^3/uL (1.0-4.8) 2.7 x10^3/uL (1.0-4.8) Monocytes # (Auto) 0.5 x10^3/uL (0.0-1.1) 0.7 x10^3/uL (0.0-1.1) Eosinophils # (Auto) 0.1 x10^3/uL (0.0-0.7) 0.1 x10^3/uL (0.0-0.7) Basophils # (Auto) 0.1 x10^3/uL (0.0-0.2) 0.1 x10^3/uL (0.0-0.2) Prothrombin Time 12.9 SEC (11.7-14.0) Prothromb Time International Ratio 1.0 (0.8-1.1) Activated Partial Thromboplast Time 29 SEC (24-38) Sodium Level 138 mmol/L (136-145) 139 mmol/L (136-145) Potassium Level 3.6 mmol/L (3.5-5.1) 3.7 mmol/L (3.5-5.1) Chloride Level 105 mmol/L (98-107) 105 mmol/L (98-107) Carbon Dioxide Level 24 mmol/L (21-32) 25 mmol/L (21-32) Anion Gap 9 (6-14) 9 (6-14) Blood Urea Nitrogen 12 mg/dL (8-26) 13 mg/dL (8-26) Creatinine 1.1 mg/dL (0.7-1.3) 1.2 mg/dL (0.7-1.3) Estimated GFR (Cockcroft-Gault) 73.1 66.1 BUN/Creatinine Ratio 11 (6-20) 11 (6-20) Glucose Level 122 mg/dL (70-99) 97 mg/dL (70-99) Calcium Level 8.9 mg/dL (8.5-10.1) 8.2 mg/dL (8.5-10.1) Magnesium Level 2.0 mg/dL (1.8-2.4) Total Bilirubin 0.6 mg/dL (0.2-1.0) 0.9 mg/dL (0.2-1.0) Aspartate Amino Transf (AST/SGOT) 33 U/L (15-37) 50 U/L (15-37) Alanine Aminotransferase (ALT/SGPT) 69 U/L (16-63) 57 U/L (16-63) Alkaline Phosphatase 75 U/L (46-116) 69 U/L (46-116) Troponin I Quantitative 0.231 ng/mL (0.000-0.055) 6.124 ng/mL (0.000-0.055) KY-Cgd-B-Type Natriuretic Peptide 55 pg/mL (0-124) Total Protein 7.2 g/dL (6.4-8.2) 6.0 g/dL (6.4-8.2) Albumin 3.8 g/dL (3.4-5.0) 3.2 g/dL (3.4-5.0) Albumin/Globulin Ratio 1.1 (1.0-1.7) 1.1 (1.0-1.7) Lipase 101 U/L (73-393) SARS-CoV-2 Antigen (Rapid) Negative (NEGATIVE) Triglycerides Level 205 mg/dL (0-150) Cholesterol Level 265 mg/dL (0-200) LDL Cholesterol, Calculated 168 mg/dL (0-100) VLDL Cholesterol, Calculated 41 mg/dL (0-40) Non-HDL Cholesterol Calculated 209 mg/dL (0-129) HDL Cholesterol 56 mg/dL (40-60) Cholesterol/HDL Ratio 4.7 Brief Hospital Course Mr. Aguilera is a 45 old male who presented with STEMI. He was taken to [facility] and had PCI with stent to proximal LAD. Following procedure patient felt much improved. He was discharged home on aspirin, prasugrel, atorvastatin, metoprolol, and Imdur. Discharge Information Condition at Discharge: Improved Disposition/Orders: D/C to Home Scheduled Aspirin (Aspirin Ec) 81 Mg Tablet.dr, 81 MG PO DAILYWBKFT for CAD, #30 Ref 2 Prescribed by: WILMER GONZALEZ MD on 07/08/20 1158 Atorvastatin Calcium (Atorvastatin Calcium) 40 Mg Tablet, 40 MG PO QHS for CAD, #30 Ref 3 Prescribed by: WILMER GONZALEZ MD on 07/08/20 1158 Isosorbide Mononitrate (Isosorbide Mononitrate Er) 30 Mg Tab.er.24h, 30 MG PO DAILY for CAD, #30 Ref 2 Prescribed by: WILMER GONZALEZ MD on 07/08/20 1158 Metoprolol Succinate (Metoprolol Succinate ( Xl )) 25 Mg Tab.er.24h, 25 MG PO DAILY for Heart Failure, #30 Ref 2 Prescribed by: WILMER GONZALEZ MD on 07/08/20 1158 Prasugrel Hcl (Effient) 10 Mg Tablet, 10 MG PO DAILYWBKFT for ID, #30 Ref 9 Prescribed by: WILMER GONZALEZ MD on 07/08/20 1158 Justicifation of Admission Dx: Justifications for Admission: Justification of Admission Dx: Yes WILMER GONZALEZ MD Jul 08, 2020 12:08
[2020-07-08 15:00] VITALS: BP 121/77
--- NOTE | 2020-07-08 18:45 | NUR ---
Discharge Note: HEENA EATON Discharge instructions and discharge home medications reviewed with Patient and Spouse and a copy given. All questions have been answered and understanding verbalized. Patient instructed to follow up with Cardiology and Primary Care doctor after discharge. All belongings taken with patient upon discharge. The following instructions and handouts were given: Myocardial Infarction, Cardiac Catheterization with Stent, Metoprolol Succinate, Effient, ASA, Lipitor, Imdur, Cardiac Rehab, and Cardiac diet. Discontinued lines and drains: Peripheral IV intact. Patient discharged to Home or Self Care with Spouse via Wheelchair
--- NOTE | 2020-07-10 10:16 | CARD ---
MR#: [id number] Date of Study: 07/08/2020 Ordering Physician: JASON SINGH, Referring Physician: JASON SINGH, Tech: Lou Pinedo [facility] APPROVED REPORT EXAM: Two-dimensional and M-mode echocardiogram with Doppler and color Doppler. Other Information Quality : Good INDICATION Cardiac Disease: CAD STEMI 2D DIMENSIONS RVDd1.8 (2.9-3.5cm)Left Atrium(2D)3.0 (1.6-4.0cm) IVSd0.9 (0.7-1.1cm)Aortic Root(2D)2.7 (2.0-3.7cm) LVDd4.6 (3.9-5.9cm)LVOT Diameter1.9 (1.8-2.4cm) PWd0.9 (0.7-1.1cm)LVDs3.4 (2.5-4.0cm) FS (%) 26.3 %SV50.3 ml LVEF(%)51.6 (>50%) Aortic Valve AoV Peak Brandin.125.0cm/sAoV VTI22.4cm AO Peak GR.6.3mmHgLVOT VTI 16.06cm AO Mean GR.4mmHgAVA (VTI)2.00cm2 Mitral Valve MV E Hebzoquu71.5cm/sMV DECEL [id number] MV A Lcwfgyri12.5cm/sE/A Ratio0.8 TDI Lateral E' P. V2.57cm/sMedial E' P. V5.08cm/s E/Lateral E'23.5E/Medial E'11.9 Tricuspid Valve TR P. Ngbkdrnn775ux/sRAP KOOFQRYG2qgFx TR Peak Gr.26sfApDTDB45leXu Pulmonary Vein S1 Kyszeufm02.5cm/sS2 Hmyueqwp23.23cm/s D2 Czxwiuvx54.2cm/s LEFT VENTRICLE The left ventricle is normal size. There is normal left ventricular wall thickness. Severe LV systoli c dysfunction. EF 30%. The mid to distal anterior wall, septum and apex are severely hypokinetic cons istent with LAD territory infarct. Transmitral Doppler flow pattern is Grade I-abnormal relaxation pa ttern. RIGHT VENTRICLE The right ventricle is normal size. There is normal right ventricular wall thickness. The right ventr icular systolic function is normal. ATRIA The left atrium size is normal. The right atrium size is normal. The interatrial septum is intact wit h no evidence for an atrial septal defect or patent foramen ovale as noted on 2-D or Doppler imaging. AORTIC VALVE The aortic valve is normal in structure and function. Doppler and Color Flow revealed no significant aortic regurgitation. There is no significant aortic valvular stenosis. MITRAL VALVE The mitral valve is normal in structure and function. There is no evidence of mitral valve prolapse. There is no mitral valve stenosis. Doppler and Color-flow revealed trace to mild mitral regurgitation . TRICUSPID VALVE The tricuspid valve is normal in structure and function. Doppler and Color Flow revealed trace tricus pid regurgitation. The PA pressure was estimated at 25 mmHg. There is no tricuspid valve stenosis. PULMONIC VALVE The pulmonic valve is not well visualized. Doppler and Color Flow revealed no pulmonic valvular regur gitation. There is no pulmonic valvular stenosis. GREAT VESSELS The aortic root is normal in size. The ascending aorta is normal in size. The IVC is normal in size a nd collapses >50% with inspiration. PERICARDIAL EFFUSION There is no evidence of significant pericardial effusion. Critical Notification Critical Value: No <Conclusion> Severe LV systolic dysfunction. EF 30%. The mid to distal anterior wall, septum and apex are severely hypokinetic consistent with LAD territo ry infarct. Signed by : Jason Singh, Electronically Approved : 07/09/2020 09:07:03
--- NOTE | 2020-07-10 10:16 | CARD ---
MR#: [id number] Date of Study: 07/07/2020 Ordering Physician: ML SINGH, Referring Physician: ML SINGH, Tech: RT Maegan (R) APPROVED REPORT Technologist: Marcus Yeboah RT (R) Nurse: Karen Fox R.N. Procedure(s) performed: flouro time 15.0 minutes dose 101.58 Gycm2 contrast 145cc's Visipaque moderate sedation 90 mintues [facility], Coronary angiography, Left ventriculogram Complex PCI of the LAD IVUS of the LAD iFR of the RCA CS Clinical Frailty Scale [facility] Clinical Frailty Scale: Managing Well Heart Failure Heart Failure: Yes If Yes, Newly Diagnosed: Yes If Yes, HF Type: Diastolic If Yes, NYHA Class: Class III PROCEDURE NARRATIVE Clinical information: 45-year-old man with significant family history for coronary artery disease presented to the hospital in the setting of accelerating angina for the previous 12 hours. Initial EKG revealed anterolateral ST elevation myocardial infarction and the patient was taken emergently to the cardiac catheterizati on laboratory. Informed consent: Written informed consent was obtained from the patient after adequate discussion of the risks and mady efits of the procedure. Procedure details: ACCESS: The right wrist was prepped and draped in usual sterile fashion. Under 1% lidocaine local anesthesia a 6 [place]ian Terumo sheath was placed in the right radial artery via the Seldinger technique. DIAGNOSTIC ANGIOGRAPHY: Right and left coronary arteries were engaged with a 6 [place]ian TIG catheter. Diagnostic angiography i n multiple views were obtained. Next, a 6 [place]ian pigtail catheter was placed in the left ventricle a nd a LVEDP was measured. A pullback was performed after left ventriculography. All catheters were e xchanged over J-tip guidewire. FINDINGS: ======= Aorta: 110/80 LVEDP: 18 mmHg Left ventriculogram: Ejection fraction 45% Mild mid to distal anterior wall and apical hypokinesis without any evidence of mitral insufficiency. Coronary angiography: LM: Large caliber vessel with normal angiographic appearance LAD: Large caliber rapidly tapering vessel with a mid 100% occlusion. D1: Small caliber vessel with normal angiographic appearance LCX: Moderate caliber non-dominant vessel with mild luminal irregularities OM1: Small caliber vessel with normal angiographic appearance RCA: Large caliber dominant vessel with a mid 50% stenosis RPDA: Moderate caliber vessel with mild luminal irregularities. Interventional technique: Complex PCI of the LAD Heparin and tirofiban were used for anticoagulation. Through a 6 [place]ian EBU 3.0 guide catheter a 0.0 14 inch Prowater wire was placed in the distal LAD. Balloon angioplasty was performed with a 2.5 x 1 2 mm balloon and the lesion was then stented with a 3.0 x 38 mm resolute drug-eluting stent. The pro ximal portion of the stent was then postdilated with a 3.5 mm noncompliant balloon at nominal pressur es. A intravascular ultrasound study was performed and this revealed mall apposition in the proximal one third of the stent and therefore the proximal one third of this stent was postdilated with a 4 m m noncompliant balloon revealing good apposition. Final angiography demonstrated excellent stent exp ansion with RUFINO-3 flow in the vessel no evidence of guide or wire related complications. Attention was then turned to the residual moderate stenosis in the RCA. Through a 6 [place]ian JR4 guide catheter a IFR wire was placed in the distal RCA after appropriate normalization and intracoronary g lycerin was administered. A IFR value was noted to be a 0.97 and therefore further intervention was deferred. The patient received 60 mg of prasugrel at case completion CLOSURE: At case completion the right radial sheath was removed and a Terumo radial band was applied with 11 m L of air. Hemostasis was achieved. COMPLICATIONS: No acute complications noted RUFINO Flow RUFINO Flow (Pre-Intervention): RUFINO-0 RUFINO Flow (Post-Intervention): RUFINO-3 Conclusion 1. Acute anterolateral ST elevation myocardial infarction due to mid LAD occlusion 2. Successful PCI of the mid LAD with implantation of a 3.0 x 38 mm drug-eluting stent postdilated i n the proximal segment up to a 4 mm size 3. Negative IFR of the mid RCA stenosis 4. Mild LV systolic dysfunction with ejection fraction of 45% 5. 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 Aspirin 81 mg daily indefinitely 2. Prasugrel 10 mg daily at least for 1 full year 3. High-dose statin therapy and cardiac rehabilitation referral. Signed by : Ml Singh, Electronically Approved : 07/08/2020 08:11:20
== END 2020-07-08 18:45 | disposition home or self-care (01) | DRG 246 ==
LOC: ER 12:34 → 2 NORTH 12:52 → ER 13:10 → 2 NORTH 16:04
PROVIDERS: ADMIT Internal Medicine; ATTEND Internal Medicine
PROC: 4A023N7 Measurement of Cardiac Sampling and Pressure, Left Heart, Percutaneous Approach (ICD-10-PCS; principal; 2020-07-07)
PROC: 027034Z Dilation of Coronary Artery, One Artery with Drug-eluting Intraluminal Device, Percutaneous Approach (ICD-10-PCS; 2020-07-07)
PROC: B2111ZZ Fluoroscopy of Multiple Coronary Arteries using Low Osmolar Contrast (ICD-10-PCS; 2020-07-07)
DX: I21.09 ST elevation (STEMI) myocardial infarction involving other coronary artery of anterior wall (principal); I50.23 Acute on chronic systolic (congestive) heart failure; I25.10 Atherosclerotic heart disease of native coronary artery without angina pectoris; I50.9 Heart failure, unspecified; Z82.49 Family history of ischemic heart disease and other diseases of the circulatory system; Z20.822 Contact with and (suspected) exposure to COVID-19
CPT/HCPCS: 36415; 37252; 71045; 80053; 80061; 83690; 83735; 83880; 84484; 85025; 85610; 85730; 87426; 92928; 93306; 93458; 93571; 96361; 96374; 96375; 99152; 99153; 99285; C1725; C1753; C1769; C1874; C1887; C1892; J1644; J2250; J2405; J3010; J3490; J7030; Q9967; U0003; G0378; J3246

== ENCOUNTER → 2020-09-04 | Outpatient (CLI) | payer OTHER ==
[~2020-09-04] MED LIST: ASPI-886 PO; ATOR40TA59 PO; ISOS30TA68 PO; METO-239 PO; PRAS10TA9 PO
[2020-09-04 08:38] LABS: ALBUMIN 3.6 g/dL (3.4-5.0); ALBUMIN/GLOBULIN RATIO 1.2 (1.0-1.7); CALCIUM 8.4 mg/dL (8.5-10.1); CREATININE 1.1 mg/dL (0.7-1.3); GFR 73.1; POTASSIUM 4.3 mmol/L (3.5-5.1); TOTAL BILIRUBIN 0.7 mg/dL (0.2-1.0); TOTAL PROTEIN 6.7 g/dL (6.4-8.2)
[2020-09-04 08:39] LABS: CHOLESTEROL/HDL RATIO 2.4
== END ==
LOC: LAB 07:11
PROVIDERS: ATTEND Internal Medicine Cardiovascular Disease
DX: I25.5 Ischemic cardiomyopathy (principal)
CPT/HCPCS: 36415; 80053; 80061; 83721; 83880

== ENCOUNTER → 2020-09-25 | Outpatient (CLI) | payer OTHER ==
[2020-09-25 08:56] LABS: ALBUMIN 3.6 g/dL (3.4-5.0); ALBUMIN/GLOBULIN RATIO 1.1 (1.0-1.7); CALCIUM 8.9 mg/dL (8.5-10.1); GFR 81.6; POTASSIUM 4.5 mmol/L (3.5-5.1); TOTAL BILIRUBIN 0.7 mg/dL (0.2-1.0); TOTAL PROTEIN 6.9 g/dL (6.4-8.2)
[2020-09-25 08:57] LABS: CHOLESTEROL/HDL RATIO 2.5
== END ==
LOC: LAB 08:14
PROVIDERS: ATTEND Internal Medicine Cardiovascular Disease
DX: I25.5 Ischemic cardiomyopathy (principal)
CPT/HCPCS: 36415; 80053; 80061; 83721; 83880

== ENCOUNTER → 2020-10-31 | Outpatient (CLI) | payer OTHER ==
--- NOTE | 2020-10-31 15:07 | CARD ---
MR#: [id number] Date of Study: 10/31/2020 Ordering Physician: ML SINGH, Referring Physician: ML SINGH, Tech: Marcelo Mclaughlin [facility] APPROVED REPORT EXAM: Two-dimensional and M-mode echocardiogram with Doppler and color Doppler. Other Information Quality : GoodHR: 61bpm INDICATION Cardiomyopathy RISK FACTORS Hyperlipidemia 2D DIMENSIONS RVDd3.1 (2.9-3.5cm)Left Atrium(2D)3.2 (1.6-4.0cm) IVSd5.6 (0.7-1.1cm)Aortic Root(2D)2.8 (2.0-3.7cm) LVDd1.0 (3.9-5.9cm)LVOT Diameter2.1 (1.8-2.4cm) LVDs3.4 (2.5-4.0cm)FS (%) 257.2 % SV45.5 ml Aortic Valve AoV Peak Brandin.108.6cm/sAoV VTI21.5cm AO Peak GR.4.7mmHgLVOT Peak Brandin.87.5cm/s LVOT VTI 18.41cmAO Mean GR.2mmHg JASMYNE (VMAX)2.55rt2HTV (VTI)2.87cm2 Mitral Valve MV E Isfofanz30.7cm/sMV DECEL GMSS055jd MV A Vinukrao18.4cm/sMV ZDU89wu E/A Ratio1.2MVA (PHT)2.96cm2 TDI E/Lateral E'4.3E/Medial E'4.2 Pulmonary Valve PV Peak Cxntafel043.3cm/sPV Peak Grad.5mmHg Tricuspid Valve TR P. Kybdmdxr802xs/sRAP AHYQBBJT5dtEg TR Peak Gr.01rrXiIBEH77obFe Pulmonary Vein S1 Yxvyytjb85.4cm/sD2 Gznjchqm24.4cm/s PVa xwrfjoyr06eorx LEFT VENTRICLE The left ventricle is normal size. There is normal left ventricular wall thickness. The left ventricu lar systolic function is normal and the ejection fraction is within normal range. The Ejection Fracti on is 50-55%. There is normal LV segmental wall motion. The left ventricular diastolic function and f illing is normal for age. RIGHT VENTRICLE The right ventricle is normal size. There is normal right ventricular wall thickness. The right ventr icular systolic function is normal. ATRIA The left atrium size is normal. The right atrium size is normal. The interatrial septum is intact wit h no evidence for an atrial septal defect or patent foramen ovale as noted on 2-D or Doppler imaging. AORTIC VALVE The aortic valve is normal in structure and function. Doppler and Color Flow revealed no significant aortic regurgitation. There is no significant aortic valvular stenosis. Calculated aortic valve area is 2.69 cm2 with maximum pressure gradient of 6 mmHg and mean pressure gradient of 3 mmHg. MITRAL VALVE The mitral valve is normal in structure and function. There is no evidence of mitral valve prolapse. There is no mitral valve stenosis. Doppler and Color-flow revealed trace mitral regurgitation. TRICUSPID VALVE The tricuspid valve is normal in structure and function. Doppler and Color Flow revealed trace tricus pid regurgitation with an estimated PAP of 25 mmHg. There is no tricuspid valve stenosis. PULMONIC VALVE The pulmonary valve is normal in structure and function. Doppler and Color Flow revealed trace pulmon ic valvular regurgitation. GREAT VESSELS The aortic root is normal in size. The IVC is normal in size and collapses >50% with inspiration. PERICARDIAL EFFUSION There is no evidence of significant pericardial effusion. Critical Notification Critical Value: No <Conclusion> The left ventricle is normal size. The left ventricular systolic function is normal and the ejection fraction is within normal range. The Ejection Fraction is 50-55%. There is normal LV segmental wall motion. Doppler and Color Flow revealed no significant aortic regurgitation. There is no significant aortic valvular stenosis. Doppler and Color-flow revealed trace mitral regurgitation. Doppler and Color Flow revealed trace tricuspid regurgitation with an estimated PAP of 25 mmHg. Signed by : Delgado Orlando MD Electronically Approved : 10/31/2020 15:07:39
== END ==
LOC: ECHO 07:36
PROVIDERS: ATTEND Internal Medicine Cardiovascular Disease
DX: I25.5 Ischemic cardiomyopathy (principal)
CPT/HCPCS: 93306

== ENCOUNTER → 2021-06-12 | Outpatient (CLI) | payer OTHER ==
[2021-06-12 09:07] LABS: BASO # 0.1 x10^3/uL (0.0-0.2); BASO % 1 % (0-3); EOS # 0.1 x10^3/uL (0.0-0.7); EOS % 2 % (0-3); HEMATOCRIT 47.4 % (39.0-53.0); LYMPH # 2.7 x10^3/uL (1.0-4.8); LYMPH % 37 % (24-48); MEAN CORPUSCULAR HEMOGLOBIN 30 pg (25-35); MEAN CORPUSCULAR HGB CONC 34 g/dL (31-37); MEAN CORPUSCULAR VOLUME 89 fL (79-100); MONO # 0.4 x10^3/uL (0.0-1.1); MONO % 6 % (0-9); NEUT % 55 % (31-73); PLATELET COUNT 281 x10^3/uL (140-400); RED BLOOD COUNT 5.31 x10^6/uL (4.30-5.70); RED CELL DISTRIBUTION WIDTH 12.6 % (11.5-14.5); WHITE BLOOD COUNT 7.3 x10^3/uL (4.0-11.0)
[2021-06-12 09:33] LABS: ALBUMIN 3.6 g/dL (3.4-5.0); CALCIUM 8.4 mg/dL (8.5-10.1); CHOLESTEROL/HDL RATIO 2.4; CREATININE 0.9 mg/dL (0.7-1.3); GFR 91.7; POTASSIUM 4.4 mmol/L (3.5-5.1); TOTAL PROTEIN 7.3 g/dL (6.4-8.2)
== END ==
LOC: LAB 08:41
PROVIDERS: ATTEND Internal Medicine Cardiovascular Disease
DX: I25.5 Ischemic cardiomyopathy (principal)
CPT/HCPCS: 36415; 80053; 80061; 85025

== ENCOUNTER → 2021-10-11 | Outpatient (CLI) | payer OTHER ==
[2021-10-11 08:30] LABS: BASO % 1 % (0-3); EOS # 0.1 x10^3/uL (0.0-0.7); EOS % 2 % (0-3); HEMATOCRIT 47.7 % (39.0-53.0); HEMOGLOBIN 16.1 g/dL (13.0-17.5); LYMPH # 1.9 x10^3/uL (1.0-4.8); LYMPH % 30 % (24-48); MEAN CORPUSCULAR HEMOGLOBIN 30 pg (25-35); MEAN CORPUSCULAR HGB CONC 34 g/dL (31-37); MEAN CORPUSCULAR VOLUME 89 fL (79-100); MONO # 0.4 x10^3/uL (0.0-1.1); MONO % 7 % (0-9); NEUT # 3.9 x10^3/uL (1.8-7.7); NEUT % 60 % (31-73); PLATELET COUNT 280 x10^3/uL (140-400); RED BLOOD COUNT 5.35 x10^6/uL (4.30-5.70); RED CELL DISTRIBUTION WIDTH 12.8 % (11.5-14.5); WHITE BLOOD COUNT 6.5 x10^3/uL (4.0-11.0)
[2021-10-11 08:55] LABS: ALBUMIN 3.9 g/dL (3.4-5.0); ALBUMIN/GLOBULIN RATIO 1.2 (1.0-1.7); CALCIUM 8.7 mg/dL (8.5-10.1); GFR 81.2; POTASSIUM 4.5 mmol/L (3.5-5.1); TOTAL BILIRUBIN 1.2 mg/dL (0.2-1.0); TOTAL PROTEIN 7.2 g/dL (6.4-8.2)
[2021-10-11 09:00] LABS: CHOLESTEROL/HDL RATIO 2.8
--- NOTE | 2021-10-11 17:40 | RAD ---
MR#: [id number] Date of Study: 10/11/2021 Ordering Physician: ML ROSARIO, Referring Physician: GUALBERTO HAGEN Tech: RT Cole (R) (N) APPROVED REPORT Test Type: Exercise Stress Nurse/Tech: Chio De La O RN Test Indications: Ischemic Cardiomyopathy Cardiac History: Hypertension,CT 07/19 (1 stent) Medications: See Electronic Medical Record Medical History: See Electronic Medical Record Resting ECG: SR Resting Heart Rate: 61 bpm Resting Blood Pressure: 122/73mmHg Pretest Chest Pain: No chest pain Nurse/Tech Notes S1,S2 and lungs clear to auscultation. Consent: The procedure was explained to the patient in lay terms. Informed consent was witnessed. Anam eout was entered into [employer]. History and Stress Test performed by MALLORY Guerrero Stress Symptoms Fatigue,diaphoresis POST EXERCISE Reason for Termination: Reached target heart rate, Fatigue Target HR: Yes Max HR: 166 bpm 111% of Maximum Predicted HR: 149 bpm Exercise duration: 11:00 min:sec, 4 Stage Exercise capacity: 13.4METs Max Blood Pressure: 145/84mmHg Blood Pressure response to exercise: Normal blood pressure response during stress. Heart Rate response to exercise: WNL Chest Pain: No. Arrhythmia: No. ST Change: No. INTERPRETATION Stress EKG Conclusion: No evidence of stress induced EKG changes. Imaging Protocol IMAGE PROTOCOL: Rest Tc-99m/stress Tc-99m 1 day Rest: Stress: Viability: Radiopharm.Tc99m TsuuaqtxsZh45j Sestamibi Zwgp06lAy 33mCi Duration 13min. 13min. Img Date 10/11/2021 10/11/2021 Inj-Img Rxis01wgy. 60min. Rest Admin Site:IV - Right AntecubitalAdministrator:RT Cole (R)(N) Stress Admin Site: IV - Right AntecubitalAdministrator: MALLORY Guerrero STRESS DATA End Diast. Vol.71.0mlLVEDV index BSA40.0ml End Syst. Vol.23.0mlLVESV index BSA13.0ml Myocardial Tzhb246.0gEject. Pxtrewel90.0% Stress Scores Regional WT1.00Summed WT9.00 Regional WM0.00Summed WM2.00 The rest and stress images show normal perfusion, normal contraction and thickening. LV Perf. Quant 17 Seg. SSS0.00 17 Seg. SRS0.00 17 Seg. SDS0.00 Stress Defect Extent (% LAD)0.00Rest Defect Extent (% LAD)0.00Rev. Defect Extent (% LAD)0.00 Stress Defect Extent (% LCX) 0.00Rest Defect Extent (% LCX)0.00Rev. Defect Extent (% LCX)0.00 Stress Defect Extent (% RCA)0.00Rest Defect Extent (% RCA)0.00Rev. Defect Extent (% RCA)0.00 Stress Defect Extent (% LAUREN)0.00Rest Defect Extent (% LAUREN)0.00Rev. Defect Extent (% LAUREN)0.00 Other Information Quality:Average Risk Assessment: Low Risk Conclusion 1. No evidence of EKG changes with stress testing. 2. Normal perfusion at stress/rest. 3. Low risk study. 4. EF > 60%. Signed by : Ml Rosario, Electronically Approved : 10/11/2021 17:39:31
== END ==
LOC: NM 08:42
PROVIDERS: ATTEND Internal Medicine Cardiovascular Disease
DX: I25.5 Ischemic cardiomyopathy (principal)
CPT/HCPCS: 36415; 78452; 80053; 80061; 83721; 85025; 93017; A9500